=== PATIENT | male | born 1985 | race African-American/Black ===

== ENCOUNTER 2019-05-08 16:28 | Emergency (ER) | payer MEDICAID ==
[~2019-05-08] VITALS: Ht 170.2 cm; Wt 68.0 kg
[2019-05-08 18:36] VITALS: BP 149/72
== END 2019-05-08 21:30 | disposition left against medical advice (07) ==
LOC: ER 16:28
DX: Z53.21 Procedure and treatment not carried out due to patient leaving prior to being seen by health care provider (principal)

== ENCOUNTER 2020-10-07 23:10 | Inpatient (IN) | payer MEDICAID ==
[~2020-10-07] VITALS: Ht 172.7 cm; Wt 84.8 kg
[2020-10-08] VITALS (12 sets, daily range): BP systolic 104–149; BP diastolic 51–90
[2020-10-08 00:12] LABS: BASOPHILS % 0.3 % (0.0-2.0); EOSINOPHILS % 0.1 % (0.0-5.0); HEMATOCRIT. 44.8 % (42.0-52.0); HEMOGLOBIN. 15.1 g/dL (14.0-18.0); LYMPHOCYTES % 9.3 % (20.0-50.0); MEAN CORPUSCULAR HEMOGLOBIN 29.7 pg (28.0-32.0); MEAN CORPUSCULAR VOLUME 87.9 fL (80.0-94.0); MEAN PLATELET VOLUME 7.4 fl (7.4-10.4); MONOCYTES % 5.2 % (2.0-8.0); NEUTROPHILS % 85.1 % (40.0-76.0); PLATELET 264 x1000/uL (130-400); RED BLOOD CELL COUNT 5.09 mill/uL (4.7-6.1); RED CELL DISTRIBUTION WIDTH 14.3 % (11.6-14.6)
[2020-10-08 00:18] LABS: CHLORIDE 100 mEq/L (98-107)
[2020-10-08 00:19] LABS: PROTHROMBIN TIME 10.9 sec (9.6-11.0)
[2020-10-08 00:20] LABS: ETHANOL BLOOD < 10 mg/dL
[2020-10-08 00:23] LABS: LDL CHOLESTEROL 46 mg/dL (5-100)
[2020-10-08] MEDS ORDERED: IOHEXOL-350 100 ML BOTTLE ONE (00:41)
[2020-10-08] MEDS ORDERED: ASPIRIN 325MG EC TABLET PO ONE (01:45)
[2020-10-08 01:59] LABS: CLARITY URINE CLEAR (CLEAR); COLOR URINE YELLOW (YELLOW); KETONES URINE 1+ (NEGATIVE); LEUKOCYTE ESTERASE URINE NEGATIVE (NEGATIVE); NITRITE URINE NEGATIVE (NEGATIVE); OCCULT BLOOD URINE NEGATIVE (NEGATIVE); PH URINE 6.5 (4.5-8.0); PROTEIN URINE NEGATIVE (NEGATIVE); SPECIFIC GRAVITY URINE 1.067 (1.005-1.030); UROBILINOGEN URINE 0.2 E.U./dL (0.2-1.0)
[2020-10-08 02:24] LABS: *AMPHETAMINES SCREEN URINE NEGATIVE (NEGATIVE); *BARBITURATES SCREEN URINE NEGATIVE (NEGATIVE); *BENZODIAZEPINES SCREEN URINE NEGATIVE (NEGATIVE); *COCAINE SCREEN URINE PRESUMTIVE POSITIVE (NEGATIVE); CANNABINOID URINE SCREEN PRESUMTIVE POSITIVE (NEGATIVE); METHADONE URINE SCREEN NEGATIVE (NEGATIVE); OPIATES URINE SCREEN NEGATIVE (NEGATIVE); PHENCYCLIDINE URINE SCREEN NEGATIVE (NEGATIVE)
[2020-10-08 08:40] LABS: BASOPHILS % 0.3 % (0.0-2.0); EOSINOPHILS % 1.2 % (0.0-5.0); HEMATOCRIT. 41.5 % (42.0-52.0); LYMPHOCYTES % 37.9 % (20.0-50.0); MEAN CORPUSCULAR HEMOGLOBIN 29.8 pg (28.0-32.0); MEAN CORPUSCULAR VOLUME 88.8 fL (80.0-94.0); MEAN PLATELET VOLUME 7.7 fl (7.4-10.4); MONOCYTES % 9.8 % (2.0-8.0); NEUTROPHILS % 50.8 % (40.0-76.0); PLATELET 249 x1000/uL (130-400); RED BLOOD CELL COUNT 4.68 mill/uL (4.7-6.1); RED CELL DISTRIBUTION WIDTH 14.1 % (11.6-14.6)
[2020-10-08 08:50] LABS: CHLORIDE 104 mEq/L (98-107)
[2020-10-08 08:57] LABS: LDL CHOLESTEROL 42 mg/dL (5-100)
[2020-10-08 08:59] LABS: HDL CHOLESTEROL 51 mg/dL (40-59)
[2020-10-08] MEDS: ENOXAPARIN 40MG/0.4ML SYR SUBCUT SCH (09:04)
[2020-10-08] MEDS: FAMOTIDINE 20MG TABLET PO SCH ×2 (09:04→21:37)
[2020-10-08] MEDS: ASPIRIN 81MG TABLET PO SCH (13:26)
[2020-10-08] MEDS: ACETAMINOPHEN 650MG/20.3ML UDC PO PRN (16:42)
[2020-10-08] MEDS: ATORVASTATIN CALCIUM 40MG TABLET PO SCH (21:37)
[2020-10-09] VITALS (8 sets, daily range): BP systolic 117–155; BP diastolic 60–89
[2020-10-09] MEDS: ASPIRIN 81MG TABLET PO SCH (08:19)
[2020-10-09] MEDS: FAMOTIDINE 20MG TABLET PO SCH ×2 (08:19→20:09)
[2020-10-09] MEDS: ENOXAPARIN 40MG/0.4ML SYR SUBCUT SCH (08:19)
[2020-10-09] MEDS: ACETAMINOPHEN 650MG/20.3ML UDC PO PRN (16:30)
[2020-10-09] MEDS: ATORVASTATIN CALCIUM 40MG TABLET PO SCH (20:09)
[2020-10-10] VITALS: BP 117/84
[2020-10-10] MEDS: ACETAMINOPHEN 650MG/20.3ML UDC PO PRN (02:28)
[2020-10-10 04:00] VITALS: BP 130/79
[2020-10-10 08:00] VITALS: BP 102/62
[2020-10-10] MEDS: ENOXAPARIN 40MG/0.4ML SYR SUBCUT SCH (08:25)
[2020-10-10] MEDS: FAMOTIDINE 20MG TABLET PO SCH (08:26)
[2020-10-10] MEDS: ASPIRIN 81MG TABLET PO SCH (08:26)
[2020-10-10 12:00] VITALS: BP 134/86
[2020-10-10 15:30] VITALS: BP 130/80
[2020-10-10 15:48] VITALS: BP 130/80
== END 2020-10-10 18:05 | disposition home or self-care (01) | DRG 347 ==
LOC: ER 23:10 → EDBEDREQ 23:30 → 5EST 10-08 01:39 → EDBEDREQTM 10-08 01:46 → EDBEDREQ 10-08 01:46 → ENRESERV 10-08 02:47
PROVIDERS: ADMIT Internal Medicine; ATTEND Internal Medicine
DX: M48.02 Spinal stenosis, cervical region (principal); M50.221 Other cervical disc displacement at C4-C5 level; J43.9 Emphysema, unspecified; F12.90 Cannabis use, unspecified, uncomplicated; F14.90 Cocaine use, unspecified, uncomplicated; F17.210 Nicotine dependence, cigarettes, uncomplicated; Z71.51 Drug abuse counseling and surveillance of drug abuser; S14.3XXA Injury of brachial plexus, initial encounter; R07.9 Chest pain, unspecified; Y33.XXXA Other specified events, undetermined intent, initial encounter; Y93.89 Activity, other specified; Y92.89 Other specified places as the place of occurrence of the external cause; Y99.8 Other external cause status
CPT/HCPCS: 36415; 70496; 70498; 70551; 71045; 72141; 73200; 73221; 80048; 80053; 80061; 80305; 80320; 81003; 83036; 83721; 84484; 85025; 93005; 93308; 93880; 97162; 99291; J1650; L3670; Q9967; G0480